=== PATIENT | female | born 1945 | race Caucasian/White ===

== ENCOUNTER 2018-01-11 12:46 | Outpatient (CLI) | payer MEDICARE ==
--- NOTE | 2018-01-11 13:38 | RAD ---
TWO VIEW CHEST: History: Dyspnea. FINDINGS: Lung neal are clear. No infiltrate or vascular congestion. Heart size is normal. Osseous structures unremarkable. IMPRESSION: No acute process. POS: H
== END 2018-01-11 12:47 | disposition home or self-care (01) ==
LOC: RAD 12:46
PROVIDERS: ATTEND Internal Medicine Gastroenterology
DX: R05 Cough (principal)
CPT/HCPCS: 71046

== ENCOUNTER 2018-02-14 09:14 | Outpatient (CLI) | payer MEDICARE ==
--- NOTE | 2018-02-14 12:41 | RAD ---
DOUBLE CONTRAST BARIUM ENEMA: 02/14/2018 HISTORY: Hemorrhoids. Colorectal screening. FLUOROSCOPY: Total fluoroscopy time is 1.7 minutes with a total dose of 254.041 Gy per cm2. FINDINGS: Cable Former KUB demonstrates a nonspecific bowel gas pattern. No suspicious calcifications are seen. Dege nerative changes are noted in the spine. A double contrast barium enema was performed in the usual fashion with contrast extending to the leve l of the cecum, and there is reflux of contrast into the terminal ileum on the post evacuation images . Colonic diverticulosis is present, involving the sigmoid colon. There are a few areas of increase d density along the colon, probably related to coating of barium along the maynard of the colon or a sm all amount of debris/retained fecal material, but no definitive persistent filling defect is seen. N o annular constricting lesion is identified. IMPRESSION: 1. Colonic diverticulosis. 2. No definitive persistent filling defect is seen. 3. No constricting annular lesion is appreciated involving the colon. POS: [facility]
== END 2018-02-14 09:15 | disposition home or self-care (01) ==
LOC: RAD 09:14
PROVIDERS: ATTEND Internal Medicine Gastroenterology
DX: Z12.11 Encounter for screening for malignant neoplasm of colon (principal); Z12.12 Encounter for screening for malignant neoplasm of rectum; K64.8 Other hemorrhoids; K57.30 Diverticulosis of large intestine without perforation or abscess without bleeding
CPT/HCPCS: 74280

== ENCOUNTER 2018-06-21 06:59 | Outpatient (CLI) | payer MEDICARE ==
[2018-06-21 16:23] LABS: #Basophils 0.1 thou/uL (0.0-0.2); #Eosinphils 0.2 thou/uL (0.0-0.7); #Lymphocytes 1.9 thou/uL (1.20-3.40); #Monocytes 0.4 thou/uL (0.11-0.59); #Neutrophils 4.3 thou/uL (1.40-6.50); %Eosinophils 3.3 % (0.0-10.0); %Lymphocytes 27.1 % (21.0-51.0); %Monocytes 5.6 % (0.0-10.0); %Neutrophils 63.1 % (42.0-75.0); Hemoglobin 13.1 g/dL (12.0-16.0); Mean Corpuscular HGB CONC 33.7 g/dL (32.0-36.0); Mean Corpuscular Hemoglobin 29.4 pg (27.0-31.0); Mean Corpuscular Volume 87.4 fL (78.0-98.0); Mean Platelet Volume 8.3 fL (7.4-10.4); Platelet Count 204 thou/uL (130-400); RBC Distribution Width 12.1 % (11.5-14.5); Red Blood Cell (RBC) Count 4.47 mill/uL (4.20-5.40); White Blood Cell (WBC) Count 6.9 thou/uL (4.8-10.8)
[2018-06-21 16:29] LABS: Prothrombin Time 12.7 SEC (12.0-14.7)
[2018-06-21 16:36] LABS: Bilirubin Negative (Negative); Blood, Urine Negative (Negative); Clarity CLEAR (Clear); Glucose, Urine (Dipstick) Negative (Negative); Leukocyte Small (Negative); Nitrite Negative (Negative); Protein, Urine (Dipstick) Negative (Neg-Trace); Specific Gravity, Urine 1.016 (1.002-1.036); Urobilinogen 0.2 mg/dL (0.2-1.0); pH, Urine 7.5 (5.0-9.0)
[2018-06-21 16:39] LABS: Bacteria/HPF 1+ HPF (None Seen); Hyaline Casts/LPF 0-3 HYALINE CAST LPF (0-3 Hyaline); Pathc Cast-AUWi Flag 0.14 (0-2.49); Squamous Epithelial 0-3 HPF (0-3); WBC/HPF 0-3 HPF (0-3)
[2018-06-21 16:45] LABS: Yeast-AUWi Flag 49.8 (0-25.0)
[2018-06-21 16:46] LABS: Anion Gap 13 mmol/L (10-20); BUN (Urea Nitrogen) 16 mg/dL (9.8-20.1); Calc. Creatinine Clearance 0 mL/min (70-130); Carbon Dioxide 28 mmol/L (23-31); Chloride 101 mmol/L (98-107); Estimated GFR-MDRD 65; Glucose 142 mg/dL (83-110); Potassium 3.8 mmol/L (3.5-5.1); Sodium 138 mmol/L (136-145)
[2018-06-21 16:56] LABS: RBC/HPF None Seen HPF (0-3); Yeast-All Forms None Seen HPF (None Seen)
== END 2018-06-21 07:00 | disposition home or self-care (01) ==
LOC: LABBT 06:59
PROVIDERS: ATTEND Orthopaedic Surgery
DX: Z01.818 Encounter for other preprocedural examination (principal); M17.12 Unilateral primary osteoarthritis, left knee
CPT/HCPCS: 80048; 81001; 85025; 85610; 87077; 87081; 87086; 87186; 93005; 93010

== ENCOUNTER 2018-06-25 07:17 | Inpatient (IN) | payer MEDICARE ==
--- NOTE | 2018-06-21 13:19 | HP ---
HISTORY OF PRESENT ILLNESS: The patient is a 73-year-old female with a long history of progressive degenerative arthritis of the left knee, unresponsive to conservative treatment including rest, restriction of activities, antiinflammatory medications, and several cortisone injections. The pain is now interfering with day-to-day activities including walking, getting dressed, and sleeping. PAST MEDICAL HISTORY: The patient is in otherwise good health. She has history of hypertension and is on losartan for this. She also takes calcium and multivitamins. She has been taking hydrocodone and ibuprofen for her current complaints. ALLERGIES: SHE HAS NO KNOWN ALLERGIES. FAMILY HISTORY: Otherwise unremarkable. SOCIAL HISTORY: Otherwise unremarkable. REVIEW OF SYSTEMS: Otherwise unremarkable. PHYSICAL EXAMINATION: GENERAL: Reveals a healthy female. HEENT: Unremarkable. NECK: Supple. CHEST: Clear. HEART: Regular rate and rhythm. ABDOMEN: Soft and nontender. PELVIC: Deferred. RECTAL: Deferred. BREASTS: Deferred. EXTREMITIES: Pertinent findings of the left knee; there is puffiness, but no definite effusion. There is mild valgus alignment. There is tenderness of the medial and lateral joint lines. There is crepitus with range of motion. There is no instability. Range of motion is 0 to 125 degrees. Pulses are 2+. NEUROVASCULAR: Intact. There is no pain with range of motion of the left hip. IMAGING STUDIES: X-rays of the left knee reveal [id number] collapse laterally with progression from previous x-rays. IMPRESSION: 1. Progressive degenerative arthritis of the left knee. 2. History of hypertension. PLAN: Left total knee replacement. The nature of the surgery and length of recovery and potential complications such as infection, loss of motion, incomplete relief, delayed wound healing, neurovascular injury, thromboembolic phenomenon, possible transfusion, and needs for revision have been discussed in detail. The patient does live by herself, and for this reason, may require longer than usual hospital stay. Job ID: [id number]
[2018-06-21 13:53] VITALS: BMI 38.4
[2018-06-25] MEDS ORDERED: CEFAZOLIN 2 GM/50 ML BAG ONE (07:51)
[2018-06-25] MEDS ORDERED: Tranexamic Acid 1,000 MG/10 ML VIAL ONE ×2 (07:51→11:31)
[2018-06-25] MEDS ORDERED: Sodium Chloride 0.9% 100 ML ONE (07:51)
[2018-06-25] MEDS ORDERED: Vancomycin HCl 1.5 GM in Sodium Chloride 0.9% 250 ML 300 ML IVPB SCH ×2 (08:00→20:00)
[2018-06-25] MEDS ORDERED: Midazolam HCl 2 mg/2 ml Vial ONE (08:19)
[2018-06-25] MEDS ORDERED: Fentanyl 100 MCG/2 ML VIAL ONE ×5 (08:19→12:22)
[2018-06-25] MEDS ORDERED: Zolpidem Tartrate 5 MG TAB PO PRN ×3 (08:30→12:50)
[2018-06-25] MEDS ORDERED: traMADol HCl 50 MG TAB PO PRN ×4 (08:30→12:58)
[2018-06-25] MEDS ORDERED: Promethazine HCl 25 MG/ML VIAL IM PRN ×2 (08:30→12:25)
[2018-06-25] MEDS ORDERED: Ondansetron PF 4 MG/2 ML Vial IVP PRN ×3 (08:30→12:50)
[2018-06-25] MEDS ORDERED: Fentanyl 100 MCG/2 ML VIAL SLOW IVP PRN ×5 (08:31→12:57)
[2018-06-25] MEDS ORDERED: HYDROcodone/Acetaminophen 7.5/325 mg Tablet PO PRN ×2 (08:32)
[2018-06-25] MEDS ORDERED: Lidocaine 1% (PF) 30 ML VIAL ONE (08:49)
[2018-06-25] MEDS ORDERED: Bupivacaine/Epinephrine 0.25% 30 ML VIAL ONE (09:18)
[2018-06-25] MEDS ORDERED: Tranexamic Acid 1,000 MG in Sodium Chloride 0.9% 100 ML IVPB SCH ×2 (11:45→12:50)
[2018-06-25] MEDS ORDERED: Ketorolac Tromethamine 30 MG/ML VIAL IVP SCH (12:00)
[2018-06-25] MEDS ORDERED: fentaNYL Citrate/PF 2,000 MCG in Sodium Chloride 0.9% 60 ML IV PRN (12:25)
[2018-06-25] MEDS ORDERED: Naloxone HCl 0.4 mg/ml Vial IV PRN (12:25)
[2018-06-25] MEDS ORDERED: diphenhydrAMINE 50 MG/ML VIAL IM/IV PRN (12:25)
[2018-06-25] MEDS ORDERED: diphenhydrAMINE 25 MG CAP PO PRN ×2 (12:25→12:50)
--- NOTE | 2018-06-25 12:43 | RAD ---
LEFT KNEE TWO VIEWS: History: 73-year-old female with history of total knee post-operative arthroplasty changes. FINDINGS: Recent total knee arthroplasty changes with soft tissue gas. No dislocation or periprostatic fracture . IMPRESSION: Recent left total knee arthroplasty changes. POS: OFF
[2018-06-25] MEDS ORDERED: Loratadine 10 MG TAB PO PRN (12:50)
[2018-06-25] MEDS ORDERED: Promethazine HCl 25 MG/ML VIAL SLOW IVP PRN (12:50)
[2018-06-25] MEDS ORDERED: HYDROcodone/Acetaminophen 10/325 mg Tablet PO PRN ×4 (12:50→12:58)
[2018-06-25] MEDS ORDERED: Fluticasone Propionate Nasal Spray 16 gm Bottle NASAL PRN (12:50)
[2018-06-25] MEDS ORDERED: Acetaminophen 325 MG TAB PO PRN (12:50)
[2018-06-25] MEDS ORDERED: Ropivacaine 0.5% HCl/PF (150 MG/30 ML VIAL) ONE (13:20)
[2018-06-25] MEDS ORDERED: Bupivacaine 0.25% HCL 30 ML VIAL ONE (13:20)
[2018-06-25] MEDS ORDERED: Insulin Regular 300 UNITS/3 ML VIAL SC PRN ×2 (13:49)
[2018-06-25] MEDS ORDERED: Dextrose 50% Abboject 50 ML SYRINGE SLOW IVP PRN (13:49)
[2018-06-25] MEDS ORDERED: Dextrose 5% in Water 1,000 ML IV PRN (13:49)
[2018-06-25] MEDS ORDERED: hydrALAZINE 20 MG/ML VIAL SLOW IVP PRN (13:50)
[2018-06-25] MEDS ORDERED: Eucerin (Mineral Oil/Petrolatum,White) 30 gm Jar TOP PRN (13:50)
[2018-06-25] MEDS ORDERED: Polyethylene Glycol 3350 17 GM Packet PO PRN (13:51)
[2018-06-25] MEDS ORDERED: PROPOFOL 200 MG/20 ML VIAL ONE (13:56)
[2018-06-25] MEDS ORDERED: Lidocaine 1% PF 5 ML VIAL ONE (13:56)
[2018-06-25] MEDS ORDERED: Ondansetron PF 4 MG/2 ML Vial ONE (13:56)
[2018-06-25] MEDS ORDERED: Ketorolac Tromethamine 30 MG/ML VIAL ONE (13:56)
[2018-06-25] MEDS ORDERED: PHENYLEPHRINE-NS 100 MCG/ML 10 ML SYRINGE ONE (13:56)
[2018-06-25] MEDS: Ketorolac Tromethamine 30 MG/ML VIAL IVP SCH ×2 (15:31→21:15)
[2018-06-25] MEDS: Sodium Chloride 0.9% 1,000 ML IV SCH ×2 (17:51→23:17)
[2018-06-25] MEDS: CEFAZOLIN 2 GM/50 ML BAG IVPB SCH ×2 (17:52→23:18)
[2018-06-25] MEDS: Acetaminophen 1,000 MG in Premix Bag 1 BAG IVPB SCH ×2 (18:43→23:18)
[2018-06-25] MEDS: Ferrous Gluconate 324 MG TAB PO SCH (20:17)
[2018-06-25] MEDS: Senokot S 8.6-50 MG TAB PO SCH (20:17)
[2018-06-25] MEDS: Aspirin 81 mg Enteric Coated Tablet PO SCH (20:17)
[2018-06-25] MEDS: metFORMIN XR 500 MG TAB PO SCH (20:18)
[2018-06-26] MEDS: Acetaminophen 1,000 MG in Premix Bag 1 BAG IVPB SCH ×2 (05:00→12:57)
[2018-06-26] MEDS: Ketorolac Tromethamine 30 MG/ML VIAL IVP SCH ×3 (05:01→21:00)
[2018-06-26 06:24] LABS: Hemoglobin 10.3 g/dL (12.0-16.0); Mean Corpuscular HGB CONC 33.8 g/dL (32.0-36.0); Mean Corpuscular Hemoglobin 29.5 pg (27.0-31.0); Mean Corpuscular Volume 87.5 fL (78.0-98.0); Mean Platelet Volume 7.8 fL (7.4-10.4); Platelet Count 137 thou/uL (130-400); RBC Distribution Width 12.1 % (11.5-14.5); Red Blood Cell (RBC) Count 3.48 mill/uL (4.20-5.40); White Blood Cell (WBC) Count 7.4 thou/uL (4.8-10.8)
--- NOTE | 2018-06-26 08:04 | OP ---
DATE OF PROCEDURE: 06/25/2018 [employer] BOOKKEEPER: Dr. Pérez. ANESTHESIA: General plus adductor canal and sciatic nerve blocks. PREOPERATIVE DIAGNOSIS: Degenerative arthritis, left knee. POSTOPERATIVE DIAGNOSIS: Degenerative arthritis, left knee. PROCEDURES PERFORMED: Left total knee replacement with computer-assisted navigation with cemented Laura triathlon components (#5 femoral component, #5 tibial base plate with 9 mm CS plastic insert, and A32 all plastic patellar component). DESCRIPTION OF PROCEDURE: After satisfactory anesthesia was induced in supine position, sequential compression device was placed on the nonoperative leg throughout the procedure. The patient's left leg was then prepped and draped in a routine sterile fashion. The left leg was elevated and exsanguinated with an Esmarch bandage, and the tourniquet inflated to 300 mmHg. Gently curved medial parapatellar incision was made carried down to the subcutaneous tissues. Bleeding points were controlled with Bovie cautery. Medial parapatellar arthrotomy was performed by tunnelling and portions of the fat pad were excised for exposure. There was marked degenerative arthritis of the knee, especially laterally with large areas of exposed bone. Meniscal remnants and osteophytes were removed. Using the [employer] navigation system and the appropriate guide, the distal femoral and proximal tibial articular surface were excised with an oscillating saw to accept the trial components. It was felt that #5 femoral component, #5 primary tibial base plate with 9 mm CS plastic insert gave appropriate size, fit, and stability. The popliteus tendon was released, and the IT band pie crusted to correct the valgus deformity. The patellar articular surface was excised all plastic A32 patellar component. There were good range of motion and good patellar tracking. The trial components were removed. The knee was copiously irrigated with pulsatile lavage. The bony surfaces thoroughly cleaned and dried. The permanent components were then cemented in a single stage using 1 packet of cement premixed with 1 g of tobramycin powder. Excess cement was removed. There were good, fit, and stability of the components. The knee was copiously irrigated. The medial retinaculum and quadriceps mechanism was closed with #2 Vicryl and a running #2 Quill. Subcutaneous tissues were closed with a running 0 Quill suture. The skin was closed with running subcuticular 3-0 Monoderm and SurgiSeal skin adhesive. A sterile bulky compressive dressing was applied, the tourniquet deflated after 68 minutes. The foot promptly pinked up. The sequential compression devices were applied to operate leg. She was awakened, taken to recovery room in stable condition. There were no apparent intraoperative complications. The estimated blood loss was less than 100 mL. Job ID: [id number]
[2018-06-26] MEDS: Losartan 25 MG TAB PO SCH (08:14)
[2018-06-26] MEDS: Ferrous Gluconate 324 MG TAB PO SCH ×2 (08:14→20:43)
[2018-06-26] MEDS: Sodium Chloride 0.9% 1,000 ML IV SCH ×2 (08:15→19:54)
[2018-06-26] MEDS: Senokot S 8.6-50 MG TAB PO SCH ×2 (08:15→20:43)
[2018-06-26] MEDS: Multivitamin W/ Minerals 1 TAB PO SCH (08:15)
[2018-06-26] MEDS: metFORMIN XR 500 MG TAB PO SCH ×2 (08:15→20:43)
[2018-06-26] MEDS: Aspirin 81 mg Enteric Coated Tablet PO SCH ×2 (08:15→20:49)
[2018-06-26] MEDS ORDERED: Calcium Acetate 667 MG CAP ONE (08:17)
[2018-06-26] MEDS: Thyroid 30 MG TAB PO SCH (08:17)
[2018-06-26] MEDS ORDERED: Losartan 25 MG TAB PO SCH (09:00)
[2018-06-26] MEDS ORDERED: Hydrochlorothiazide 25 MG TAB PO SCH (09:00)
[2018-06-26] MEDS ORDERED: Non-Formulary Item 1 EACH (Losartan/Hydrochlorothiazide [Losartan-Hctz 100-12.5 Mg Tab] 1 PO SCH (09:00)
[2018-06-26] MEDS: Ropivacaine HCl/PF 250 ML in Premix Bag 1 BAG NERVE BLCK SCH (13:25)
[2018-06-26] MEDS ORDERED: HYDROcodone/Acetaminophen 10/325 mg Tablet PO PRN (14:52)
[2018-06-26] MEDS ORDERED: Acetaminophen 325 MG TAB PO PRN ×2 (14:54→23:59)
[2018-06-26] MEDS ORDERED: Scopolamine 1.5 mg/72 hour Patch TOP SCH (15:00)
--- NOTE | 2018-06-26 21:18 | PDOC.PN ---
- Subjective Encounter Start Date: 06/26/18 Encounter Start Time: 18:00 Patient seen and examined for med mngt. Pain controlled. No CP/SOB/N/V. No new complaints. No overnight events - Objective MAR Reviewed: Yes Vital Signs & Weight: Vital Signs (12 hours) Temp Pulse Resp BP Pulse Ox 06/26/18 21:01 98.3 F 75 22 H 142/77 H 93 L 06/26/18 16:00 98.6 F 77 16 147/76 H 96 06/26/18 12:20 98.6 F 75 16 157/68 H 92 L Weight Weight 210 lb I&O: 06/25/18 06/26/18 06/27/18 06:59 06:59 06:59 Intake Total 2831.0 1410 Output Total 1100 1000 Balance 1731.0 410 Result Diagrams: 06/26/18 05:57 Additional Labs: Accuchecks 06/26/18 06/26/18 20:21 05:45 POC Glucose 120 H 126 H EKG Reviewed by me: Yes (SR) Phys Exam - Physical Examination Constitutional: NAD Respiratory: no wheezing, no rhonchi Cardiovascular: RRR, no rub Gastrointestinal: soft, positive bowel sounds Musculoskeletal: no edema Neurological: moves all 4 limbs Dx/Plan (1) DM2 (diabetes mellitus, type 2) Status: Chronic Qualifiers: Chronic kidney disease stage: stage 2 (mild) (2) HTN (hypertension) Code(s): I10 - ESSENTIAL (PRIMARY) HYPERTENSION Status: Chronic (3) Hypothyroidism Code(s): E03.9 - HYPOTHYROIDISM, UNSPECIFIED Status: Chronic (4) Seasonal allergies Code(s): J30.2 - OTHER SEASONAL ALLERGIC RHINITIS Status: Chronic (5) Class 2 obesity with body mass index (BMI) of 38.0 to 38.9 in adult Code(s): E66.9 - OBESITY, UNSPECIFIED; Z68.38 - BODY MASS INDEX (BMI) 38.0-38.9 , ADULT Status: Chronic - Plan PT/OT, DVT proph w/SCDs Cont Losartan with holding parameters -: Hold HCTZ -: Cont Metformin and thyroid meds -: Will follow. Thank you for this consultation -: Full code. DPOA - self/family Review of Systems - Review of Systems Respiratory: negative: Cough, Dry, Shortness of Breath, Hemoptysis, SOB with Excertion, Pleuritic Pain, Sputum, Wheezing Cardiovascular: negative: chest pain, palpitations, orthopnea, paroxysmal nocturnal dyspnea, edema, light headedness, other Gastrointestinal: negative: Nausea, Vomiting, Abdominal Pain, Diarrhea, Constipation, Melena, Hematochezia, Other Genitourinary: negative: Dysuria, Frequency, Incontinence, Hematuria, Retention , Other - Medications/Allergies Allergies/Adverse Reactions: Allergies Allergy/AdvReac Type Severity Reaction Status Date / Time No Known Allergies Allergy Verified 06/21/18 13:53 Medications: Current Medications Acetaminophen (Tylenol) 650 mg PO Q4H PRN PRN Reason: Headache/Fever or Pain 1 Hydrocodone Bitart/Acetaminophen ([place] 10/325) 1 tab PO Q4H PRN PRN Reason: PAIN SCALE 2-5 Hydrocodone Bitart/Acetaminophen ([place] 10/325) 2 tab PO Q4H PRN PRN Reason: PAIN SCALE 6-10 Albuterol/Ipratropium (Duoneb) 3 ml NEB [id number] PRN PRN Reason: SOB &/or Wheezing Aspirin (Ecotrin) 81 mg PO BID [facility] Last Admin: 06/26/18 20:49 Dose: 81 mg Dextrose/Water (Dextrose 50%) 25 gm SLOW IVP PRN PRN PRN Reason: Hypoglycemia Diphenhydramine HCl (Benadryl) 25 mg IM/IV Q3H PRN PRN Reason: Itching Diphenhydramine HCl (Benadryl) 25 mg PO Q3H PRN PRN Reason: Itching Ferrous Gluconate (Fergon) 324 mg PO BID [facility] Last Admin: 06/26/18 20:43 Dose: 324 mg Fluticasone Propionate (Flonase Nasal Story) 0 gm NASAL DAILYPRN PRN PRN Reason: Congestion Glucagon (Glucagon) 1 mg IM PRN PRN PRN Reason: Hypoglycemia Hydralazine HCl (Apresoline) 10 mg SLOW IVP Q4H PRN PRN Reason: SBP Greater Than 180 Ropivacaine 250 ml/ Device 250 mls @ 10 mls/hr NERVE BLCK INF [facility] Last Admin: 06/26/18 13:25 Dose: 250 mls Sodium Chloride (Normal Saline 0.9%) 1,000 mls @ 100 mls/hr IV .Q10H [facility] Last Admin: 06/26/18 19:54 Dose: Not Given Dextrose/Water (D5w) 1,000 mls @ 0 mls/hr IV .Q0M PRN PRN Reason: Hypoglycemia Insulin Human Regular (Humulin R) 0 units SC .MILD SLIDING SCALE PRN PRN Reason: Mild Correctional Scale Insulin Human Regular (Humulin R) 0 units SC .BEDTIME SLIDING SC PRN PRN Reason: Bedtime Correctional Scale Iron/Minerals/Multivitamins (Theragran M) 1 tab PO DAILY [facility] Last Admin: 06/26/18 08:15 Dose: 1 tab Ketorolac Tromethamine (Toradol) 15 mg IVP Q8HR [facility] Stop: 06/27/18 14:01 Last Admin: 06/26/18 21:00 Dose: 15 mg Loratadine (Claritin) 10 mg PO DAILYPRN PRN PRN Reason: .CONGESTION Losartan Potassium (Cozaar) 100 mg PO DAILY [facility] Last Admin: 06/26/18 08:14 Dose: 100 mg Metformin HCl (Glucophage Xr) 1,000 mg PO BID [facility] Last Admin: 06/26/18 20:43 Dose: 1,000 mg Mineral Oil/White Petrolatum (Eucerin Cream) 0 gm TOP BIDPRN PRN PRN Reason: Dry Skin Naloxone HCl (Narcan) 0.2 mg IV Q5MIN PRN PRN Reason: RR <8 or pt obtun/unarousable Ondansetron HCl (Zofran) 4 mg IVP Q6H PRN PRN Reason: Nausea/Vomiting Polyethylene Glycol (Miralax) 17 gm PO DAILYPRN PRN PRN Reason: Constipation Promethazine HCl (Phenergan) 12.5 mg IM Q4H PRN PRN Reason: Nausea/Vomiting Promethazine HCl (Phenergan) 12.5 mg SLOW IVP Q4H PRN PRN Reason: Nausea/Vomiting Scopolamine (Transderm Scop) 1.5 mg TOP Q3D [facility] Last Admin: 06/26/18 17:12 Dose: 1.5 mg Senna/Docusate Sodium (Senokot S) 2 tab PO BID [facility] Last Admin: 06/26/18 20:43 Dose: 2 tab Sodium Chloride (Flush - Normal Saline) 10 ml IVF PRN PRN PRN Reason: Saline Flush Thyroid (Lowgap Thyroid) 30 mg PO DAILY [facility] Last Admin: 06/26/18 08:17 Dose: 30 mg Zolpidem Tartrate (Ambien) 5 mg PO HSPRN PRN PRN Reason: Insomnia
[2018-06-26] MEDS ORDERED: Acetaminophen 500 MG TAB PO PRN (23:59)
[2018-06-27] MEDS: Ketorolac Tromethamine 30 MG/ML VIAL IVP SCH ×2 (05:11→14:27)
[2018-06-27] MEDS: Sodium Chloride 0.9% 1,000 ML IV SCH ×3 (05:13→20:35)
[2018-06-27] MEDS: Thyroid 30 MG TAB PO SCH (08:58)
[2018-06-27] MEDS: Ferrous Gluconate 324 MG TAB PO SCH ×2 (09:06→20:27)
[2018-06-27] MEDS: Aspirin 81 mg Enteric Coated Tablet PO SCH ×2 (09:06→20:27)
[2018-06-27] MEDS: Losartan 25 MG TAB PO SCH (09:07)
[2018-06-27] MEDS: metFORMIN XR 500 MG TAB PO SCH ×2 (09:07→20:27)
[2018-06-27] MEDS: Multivitamin W/ Minerals 1 TAB PO SCH (09:08)
[2018-06-27] MEDS: Senokot S 8.6-50 MG TAB PO SCH ×2 (09:08→20:27)
[2018-06-27] MEDS: HYDROcodone/Acetaminophen 10/325 mg Tablet PO PRN (09:53)
[2018-06-27] MEDS: Ondansetron PF 4 MG/2 ML Vial IVP PRN (10:00)
[2018-06-27] MEDS: Ropivacaine HCl/PF 250 ML in Premix Bag 1 BAG NERVE BLCK SCH (18:00)
[2018-06-28] MEDS: Ondansetron PF 4 MG/2 ML Vial IVP PRN ×2 (00:11→09:54)
[2018-06-28] MEDS: HYDROcodone/Acetaminophen 10/325 mg Tablet PO PRN ×2 (00:19→04:24)
[2018-06-28] MEDS: Thyroid 30 MG TAB PO SCH (08:32)
[2018-06-28] MEDS: Losartan 25 MG TAB PO SCH (09:41)
[2018-06-28] MEDS: Aspirin 81 mg Enteric Coated Tablet PO SCH (09:42)
[2018-06-28] MEDS: Senokot S 8.6-50 MG TAB PO SCH (09:42)
[2018-06-28] MEDS: metFORMIN XR 500 MG TAB PO SCH (09:42)
[2018-06-28] MEDS: Multivitamin W/ Minerals 1 TAB PO SCH (09:43)
[2018-06-28] MEDS: Ferrous Gluconate 324 MG TAB PO SCH (09:43)
[2018-06-28 12:22] VITALS: BP 143/67; TEMP 98.4
[2018-06-28] MEDS: Sodium Chloride 0.9% 1,000 ML IV SCH (13:15)
== END 2018-06-28 13:07 | disposition home or self-care (01) | DRG 470 ==
LOC: SDC 07:17 → SJJU 12:51
PROVIDERS: ADMIT Orthopaedic Surgery; ATTEND Orthopaedic Surgery
PROC: 0SRD0J9 Replacement of Left Knee Joint with Synthetic Substitute, Cemented, Open Approach (ICD-10-PCS; principal; 2018-06-25)
DX: M17.12 Unilateral primary osteoarthritis, left knee (principal); I10 Essential (primary) hypertension; E11.9 Type 2 diabetes mellitus without complications; E03.9 Hypothyroidism, unspecified; J30.2 Other seasonal allergic rhinitis; E66.9 Obesity, unspecified; Z68.38 Body mass index [BMI] 38.0-38.9, adult
CPT/HCPCS: 36415; 36416; 85027; C1713; C1776; J0131; J0360; J1885; J2001; J2250; J2405; J2704; J2795; J3010; J3370; J7050; S0020

== ENCOUNTER 2019-08-16 14:11 | Outpatient (CLI) | payer MEDICARE ==
--- NOTE | 2019-08-16 15:21 | RAD ---
LUMBAR SPINE: 08/16/19 Four views. HISTORY: Spondylolisthesis at L4-5. COMPARISON: 07/02/19. FINDINGS/IMPRESSION: Grade I anterolisthesis at L4-5 with loss of disc space again noted. Loss of disc space at L5-S1 agai n noted. There is facet hypertrophy. Degenerative spurring. Lateral views were obtained with flexion and extension. The listhesis may exacerbate slightly with ex tension. POS: [facility]
== END 2019-08-16 14:12 | disposition home or self-care (01) ==
LOC: RAD 14:11
PROVIDERS: ATTEND Family Medicine
DX: M47.816 Spondylosis without myelopathy or radiculopathy, lumbar region (principal); M43.16 Spondylolisthesis, lumbar region; M46.06 Spinal enthesopathy, lumbar region; M89.48 Other hypertrophic osteoarthropathy, other site; M51.86 Other intervertebral disc disorders, lumbar region
CPT/HCPCS: 72100